=== PATIENT | male | born 1990 | race Hispanic/Latino ===

== ENCOUNTER 2018-11-25 01:30 | Emergency (ER) | payer SELFPAY ==
[~2018-11-25] VITALS: Ht 180.3 cm; Wt 129.3 kg
[2018-11-25] MEDS ORDERED: ONDANSETRON HCL INJ 2MG/ML 2ML 2 MG/ML VIAL IV STA (01:47)
[2018-11-25] MEDS ORDERED: MORPHINE SULFATE 5 MG/ML VIAL IV ONE ×2 (02:00→03:45)
[2018-11-25] MEDS ORDERED: PIPER-TAZ 3.375 GM 50 ML IV ONE (02:00)
[2018-11-25] MEDS ORDERED: IOPAMIDOL 300MG/ML 100 ML INFUS..BTL IV ONE (03:00)
--- NOTE | 2018-11-25 03:06 | Diagnostic Imaging Report ---
EXAM: CT Pelvis WITH contrast INDICATION: History of renal abscess 2 years ago anal pain x2 days. COMPARISON: None. TECHNIQUE: Pelvis were scanned utilizing a multidetector helical scanner from the iliac crest to the pubic symphysis after administration of IV contrast. Coronal and sagittal reformations were obtained. Routine protocol was performed. Scan was performed when during portal venous phase. IV CONTRAST: 100 mL of Isovue 370 ORAL CONTRAST: Water COMPLICATIONS: None RADIATION DOSE: Total DLP: 401.66 mGy*cm Estimated effective dose: (DLP x 0.015 x size factor) mSv CTDIvol has been reviewed. It is below the limits set by the Radiation Protocol Committee (RPC). Dose modulation, iterative reconstruction, and/or weight based adjustment of the mA/kV was utilized to reduce the radiation dose to as low as reasonably achievable. FINDINGS: LINES and TUBES: None. GI TRACT: No abnormal distention, wall thickening, or evidence of bowel obstruction. Appendix is normal. PELVIC ORGANS/BLADDER: Unremarkable. LYMPH NODES: No lymphadenopathy. VESSELS: Unremarkable. PERITONEUM / RETROPERITONEUM: No free air or fluid. BONES: Unremarkable. SOFT TISSUES: 1.5 x 1.8 x 3.6 cm (transverse by AP by craniocaudal) left posterior perianal abscess containing foci of air (series 2, image 50). IMPRESSION: 1.5 x 1.8 x 3.6 cm left posterior perianal abscess Signed by: Dr. Sam Haynes M.D. on 11/25/2018 3:03 AM
== END 2018-11-25 05:40 | disposition other institution (70) ==
LOC: FSED 01:30
DX: K61.2 Anorectal abscess (principal)
CPT/HCPCS: 72193; 80053; 85025; 99284; J2270; J2405; J2543; Q9967